=== PATIENT | female | born 1985 | race African-American/Black ===

== ENCOUNTER 2018-05-19 03:13 | Emergency (ER) | payer MEDICAID ==
[~2018-05-19] VITALS: Ht 162.6 cm; Wt 90.0 kg
[2018-05-19] MEDS ORDERED: ondansetron/PF 4mg/2ml inj IV ONE (03:45)
[2018-05-19 04:08] LABS: URINE HCG NEGATIVE (NEG)
[2018-05-19 04:10] LABS: BASOPHILS % (AUTO) 0.4 % (0-1); EOSINOPHILS # (AUTO) 0.1 X10'3 (0-0.9); EOSINOPHILS % (AUTO) 1.3 % (0-6); HEMATOCRIT 39.3 % (35.0-45.0); LYMPHOCYTES # (AUTO) 2.5 X10'3 (1.1-4.8); LYMPHOCYTES % (AUTO) 41.3 % (21-51); MEAN CORPUSCULAR HEMOGLOBIN 32.8 PG (27.0-31.0); MEAN CORPUSCULAR HGB CONC 33.1 % (33.0-36.5); MEAN CORPUSCULAR VOLUME 99.1 FL (78-98); MONOCYTES # (AUTO) 0.7 X10'3 (0-0.9); MONOCYTES % (AUTO) 10.9 % (2-12); NEUTROPHILS # (AUTO) 2.8 X10'3 (1.8-7.7); NEUTROPHILS % (AUTO) 46.1 % (42-75); PLATELET COUNT 204 X10'3 (140-440); RED BLOOD COUNT 3.97 X10'6 (4.20-5.60); RED CELL DISTRIBUTION WIDTH 13.7 % (11.5-14.5); WHITE BLOOD COUNT 6.1 X10'3 (4.5-11.0)
[2018-05-19 04:11] LABS: CLARITY,URINE CLEAR (Clear); COLOR,URINE YELLOW (Yellow); GLUCOSE, URINE NEGATIVE (Neg); KETONES,URINE NEGATIVE (Neg); LEUKOCYTE ESTERASE ,URINE NEGATIVE (Neg); NITRITES, URINE NEGATIVE (Neg); OCCULT BLOOD,URINE NEGATIVE (Neg); PROTEIN,URINE NEGATIVE (Neg); UA COLLECTION TYPE CLN CATCH MIDSTREAM; UROBILINOGEN,URINE 0.2 E.U/dL (0.2-1.0)
[2018-05-19 04:12] LABS: PROTHROMBIN TIME 9.7 SECONDS (9.0-12.0)
[2018-05-19 04:13] LABS: ALANINE AMINOTRANSFERASE 21 U/L (12-78); ALBUMIN 3.8 G/DL (3.4-5.0); ALBUMIN/GLOBULIN RATIO 0.9 (1.1-1.5); ALKALINE PHOSPHATASE 106 IU/L (46-116); ANION GAP 7 (8-16); ASPARTATE AMINO TRANSFERASE 36 U/L (10-37); BILIRUBIN,TOTAL 0.3 MG/DL (0.1-1.0); BLOOD UREA NITROGEN 10 MG/DL (7-18); BUN/CREATININE RATIO 10.6 (6.6-38.0); CHLORIDE 104 MMOL/L (99-107); CREATININE 0.94 MG/DL (0.40-0.90); GLUCOSE 107 MG/DL (70-104); LIPASE 240 U/L (73-393); POTASSIUM 3.5 MMOL/L (3.5-5.1); SODIUM 141 MMOL/L (135-145); TOTAL PROTEIN 7.9 G/DL (6.4-8.2); eGFR 84 ML/MIN
[2018-05-19] MEDS ORDERED: ketorolac tromethamine 15mg/ml inj. IV ONE (04:30)
[2018-05-19] MEDS ORDERED: normal saline 1000ML IV soln IVB ONE (04:30)
[2018-05-19] MEDS ORDERED: ONDA4TAB9 SL (05:27)
[2018-05-19] MEDS ORDERED: dicyclomine 10 MG capsule PO ONE (05:50)
[2018-05-19 06:04] VITALS: BP 105/71
== END 2018-05-19 06:18 | disposition home or self-care (01) ==
LOC: ER 03:14
DX: K52.9 Noninfective gastroenteritis and colitis, unspecified (principal); Z90.49 Acquired absence of other specified parts of digestive tract; Z88.5 Allergy status to narcotic agent; Z79.899 Other long term (current) drug therapy
CPT/HCPCS: 36415; 80053; 81003; 81025; 83690; 85025; 85610; 96361; 96374; 96375; 99283; J1885; J2405; J7030